=== PATIENT | female | born 1965 | race African-American/Black ===

== ENCOUNTER 2017-10-27 12:11 | Emergency (ER) | payer OTHER ==
[2017-10-27 12:15] VITALS: BP 155/91; PULSE 81; TEMP 97.8; BMI 29.3
--- NOTE | 2017-10-27 13:12 | PDOC ---
History of Present Illness - General Chief Complaint: Injury Stated Complaint: INJURY Time Seen by Provider: 10/27/17 12:30 History Source: Patient Exam Limitations: No Limitations - History of Present Illness Initial Comments: 10/27/17 13:32 52-year-old female presents with complaints of left wrist pain. Patient states was walking at work when she had slipped on ice causing her to left land on her left arm. Patient c/o aching pain but states was able to move it and has no previous injury to the affected area. Patient also denies radiation of pain. Occurred: reports: just prior to arrival Severity: reports: mild Pain Location: reports: upper extremity Method of Injury: Yes: fall Associated Symptoms (Fall): denies symptoms Past History - Past Medical History Allergies/Adverse Reactions: Allergies Allergy/AdvReac Type Severity Reaction Status Date / Time No Known Allergies Allergy Verified 10/27/17 12:15 Home Medications: Ambulatory Orders Hydrochlorothiazide [Hctz -] 25 mg PO DAILY 10/27/17 Metoprolol Succinate [Toprol Xl -] 50 mg PO DAILY 10/27/17 COPD: No HTN: Yes - Suicide/Smoking/Psychosocial Hx Smoking History: Never smoked Patient Lives Alone: No Lives with/in: spouse/SO Review of Systems - Review of Systems Able to Perform ROS?: Yes Constitutional: No: Symptoms Reported Musculoskeletal: Yes: Joint Pain (left wrist) Integumentary: No: Symptoms Reported Neurological: No: Symptoms reported *Physical Exam - Vital Signs Last Vital Signs Temp Pulse Resp BP Pulse Ox 97.8 F 81 18 155/91 98 10/27/17 12:12 10/27/17 12:12 10/27/17 12:12 10/27/17 12:12 10/27/17 12:12 - Physical Exam General Appearance: Yes: Nourished, Appropriately Dressed. No: Apparent Distress Neck: positive: Supple. negative: Tender, Decreased range of motion Extremity: positive: Normal Capillary Refill, Normal Inspection, Normal Range of Motion, Tender (dorsal aspect of left wrist . No crepitus or deformity noted) Integumentary: positive: Normal Color, Warm, Moist ED Treatment Course - RADIOLOGY Radiology Studies Ordered: Category Date Time Status WRIST-LEFT [RAD] Stat Radiology 10/27/17 12:37 Ordered Medical Decision Making - Medical Decision Making 10/27/17 13:04 Pt with left wrist pain after falling on ice. Pt had tenderness on dorsal aspect. Xray ordered. 10/27/17 13:35 Xray -. Casey wrap ordered *DC/Admit/Observation/Transfer Diagnosis at time of Disposition: Left wrist sprain Qualifiers: Encounter type: initial encounter Qualified Code(s): S63.502A - Unspecified sprain of left wrist, initial encounter - Discharge Dispostion Disposition: HOME - Referrals Referrals: Mary Greene [Primary Care Provider] - - Patient Instructions Printed Discharge Instructions: DI for Wrist Sprain Additional Instructions: May use Casey wrap during the day but remove at night. Apply ice to the affected area for the next 2-3 days as much as you can tolerate. May take Motrin every 6-8 hours for discomfort. - Post Discharge Activity
== END 2017-10-27 13:14 | disposition home or self-care (01) ==
LOC: JERFT 12:11
DX: S63.502A Unspecified sprain of left wrist, initial encounter (principal); W00.0XXA Fall on same level due to ice and snow, initial encounter; Y93.89 Activity, other specified; Y92.9 Unspecified place or not applicable
CPT/HCPCS: 73110-TC-LT; 99281-25